=== PATIENT | male | born 1955 | race Hispanic/Latino ===

== ENCOUNTER → 2018-09-02 | Outpatient (CLI) | payer OTHER | END | disposition home or self-care (01) | LOC: RAH 11:00 | PROVIDERS: ATTEND Internal Medicine | DX: Z13.6 Encounter for screening for cardiovascular disorders (principal) | CPT/HCPCS: 75571 ==

== ENCOUNTER → 2024-05-24 | Outpatient (CLI) | payer BC ==
--- NOTE | 2024-05-25 08:14 | HMCSR ---
APPROVED REPORT EXAM: Two-dimensional and M-mode echocardiogram with Doppler and color Doppler. INDICATION ICD: R00.2 Palpitations 2D Dimensions RVDd4.0 cmLVEF(%)51.8 (>50%)LVED Vol(simp.)98.0 mL IVSd1.1 (0.7-1.1cm)FS(%)26 %LVES Vol(simp.)41.0 mL LVDd4.6 (3.8-5.6cm)Ao Root(2D)3.5 (2.0-3.7cm)LVEF(%, simp.)58 % PWd1.0 (0.7-1.1cm)LVOT diam1.9 (1.8-2.4cm)LA ESV INDEX (BP)21.16 mL/m2 LVDs3.4 (2.5-4.0cm)IVC diam1.4 cm Deformation Strain Apical 4-12.8 % Apical 2-14.7 % Apical 3-15.5 % Global Strain-14.4 % Aortic Valve AoV Vmax1.4 m/Susi Peak GR7.5 mmHgLVOT Vmax1.2 m/s AoV VTI0.3 mAo Mean GR3.9 mmHgLVOT VTI0.21 m MERLE (VMAX)2.3 cm2Al P1/2T679 msAVA (VTI) 2.3 cm2 Mitral Valve MV E Vmax56.0 cm/sDECEL [id number] ms MV A Vmax84.5 cm/sP 1/2 T63 ms E/A ratio0.7MVA (PHT)3.5 cm2 MR Max PG116 mmHg TDI E/E' Xspkac39.1E/E' Lateral5.2 Pulmonary Valve PV Vmax1.1 m/sPV VTI0.20 mPV Mean GR3 mmHg PV Peak GR5.1 mmHg Tricuspid Valve TR Vmax2.8 m/sRAP (EST) 3 ueIkBESE03.9 mmHg TR Peak GR30.9 mmHg Left Ventricle Left ventricular cavity size is normal. There is normal LV segmental wall motion. There is normal lef t ventricular wall thickness. LVEF is 55-60%. GLS rate is -14.4%. No left ventricle thrombus noted on this study. Grade 1 diastolic dysfunction Right Ventricle The right ventricle is normal size. The right ventricular systolic function is normal. Atria The left atrium size is normal. The right atrium size is normal. Aortic Valve Aortic valve is trileaflet. Aortic valve leaflets are sclerotic but open well. Trace to mild aortic r egurgitation. There is no aortic valvular stenosis. Mitral Valve Mitral valve leaflets are mildly sclerotic but open well. Mitral regurgitation is trace to mild. Ther e is no mitral valve stenosis. Tricuspid Valve The tricuspid valve leaflets appear normal. There is trace to mild tricuspid regurgitation. Right tiffanie tricular systolic pressure is estimated at 30-40 mmHg. Pulmonic Valve Pulmonic valve is not well visualized. Great Vessels The aortic root is normal in size. The IVC is normal in size and collapses >50% with inspiration. Pericardium No pericardial effusion. Conclusion Left ventricular cavity size is normal. There is normal left ventricular wall thickness. LVEF is 55-60%. GLS rate is -14.4%. Grade 1 diastolic dysfunction The right ventricle is normal size. The left atrium size is normal. Aortic valve is trileaflet. Aortic valve leaflets are sclerotic but open well. Trace to mild aortic regurgitation. Mitral valve leaflets are mildly sclerotic but open well. Mitral regurgitation is trace to mild. There is trace to mild tricuspid regurgitation. Right ventricular systolic pressure is estimated at 30-40 mmHg. Pulmonic valve is not well visualized. The aortic root is normal in size. The IVC is normal in size and collapses >50% with inspiration. No pericardial effusion.
== END | disposition home or self-care (01) ==
LOC: SHCH 15:01
PROVIDERS: ATTEND Internal Medicine Cardiovascular Disease
DX: I08.3 Combined rheumatic disorders of mitral, aortic and tricuspid valves (principal); R00.2 Palpitations
CPT/HCPCS: 93306